=== PATIENT | female | born 1960 | race Caucasian/White ===

== ENCOUNTER 2025-10-26 16:04 | Outpatient (AMB) | payer OTHER, SELFPAY ==
--- NOTE | 2025-10-26 16:09 | MHC.OFFVIS ---
Intake Visit Reasons: 1 year follow up HPI Comments Details: 65 years old woman with migraine. She is presenting for follow-up of headaches. The patient reports experiencing a couple of headaches per month, which are sometimes preceded by a light flash. The patient initiates medication at the onset of any headache, which effectively resolves the symptoms. The patient's regular medication includes Prempro for hormonal balance, which the patient is in the process of weaning off. For occasional back spasms, the patient uses an anti-inflammatory for less severe episodes and a muscle relaxer for more severe instances. The patient reports being in menopause. Review of Systems Narrative - Neurological: Reports approximately two headaches per month, sometimes with an associated light flash. - Musculoskeletal: Reports occasional back spasms. - Endocrine: Reports ongoing menopausal symptoms. Physical Exam Neuro Other: Mental Status: Alert and oriented to person, place, and time. Normal attention. Normal spontaneous speech, fluency, and comprehension. Cranial Nerves: CN II: Visual interiano full to confrontation, visual acuity intact. CN III, IV, : Pupils equal, round, reactive to light and accommodation. Extraocular movements are normal. CN V: Facial sensation is normal. CN VII: Facial movements symmetrical. CN VIII: Hearing intact to bedside conversation is normal. CN IX, X: Palate elevates symmetrically. CN XI: Shoulder shrug and head turn symmetrical. CN XII: Tongue midline without atrophy or fasciculations. Extrapyramidal: Full facial expressions and blinking. No rigidity. Movements are appropriate with no tremor or abnormality. Speech: Normal; no dysarthria or tremor. Assessment & Plan Assessment & Plan (1) Migraine without aura: Code(s): G43.009 - Migraine without aura, not intractable, without status migrainosus Category: Medical Qualifiers: Status migrainosus presence: without status migrainosus Intractability: not intractable Qualified Code(s): G43.009 - Migraine without aura, not intractable, without status migrainosus Plan Migraine w/o aura Rec: Sumatriptan 50mg one a day as needed Medications: New sumatriptan succinate 50 mg orally qd prn for headache PRN; do not exceed 4 doses per 24 hrs 10 tabs 5RF migraine headache Coding Level of Care Code Est Pt Level 3 (11423) Diagnoses Migraine without aura and without status migrainosus, not intractable G43.009 Status migrainosus presence: without status migrainosus Intractability: not intractable
--- OUTSIDE RECORDS SUMMARY | 2025-10-26 18:39 | XMS_ITS | Data Portability ---
Author Organization [place] - [facility], Allergy Address [address] [address] Care Team Providers Care [employer] Specialist Name Role Phone VAN LOVE Referring Provider [phone] Assessment No assessment recorded. Plan of Treatment Reminders Order Date Submit Date Provider Last Modified By Organization Details Last Modified Time Details Appointments None record ed. Lab None record ed. Referral None record ed. Procedures None record ed. Surgeries None record ed. Imaging None record ed. Medication Orders None record ed. Patient TargetsNo targets recorded. Patient InstructionsNo instructions recorded. Reason for Referral None Reported. Results Created Date Observation Date Name Description Value Unit Range Abnormal Flag Note LastModifiedBy Organization Detail LastModifiedTime 06/26/20 25 06/23/2025 XR, sinus es, paran emily, 3 or more view No observ ation record ed. Not Available 11/2024 11:11:14 06/26/20 25 06/03/2025 CT, sinus es, w/o contr ast No observ ation record ed. [email or web address] Not Available 11/2024 13:55:11 Result Notes None recorded. Problems Name Problem SNOMED Code Status Onset Date Resolution Date Notes Provider Name and Address Organization Details Recorded Time Bilateral tinnitus 93022870055 02 Active 2017 Tinnitus, bilateral ; Note: Date Diagnosed : 03/13/2018 2:24 PM (H93.13) Not Available [facility] 4 02:27:45 Sensorine ural hearing loss of bilateral ears 692471522 Active 2022 Sensorine ural hearing loss, bilateral ; Note: Date Diagnosed : 3 4:00 PM (H90.3) Not Available [facility] 4 02:27:47 Recurrent acute maxillary sinusitis Active 2024 MADIHA ATKINSON MD [address] [place] [address], [place], [address] , [facility] 5 10:57:21 Posterior rhinorrhe a 71864774 Active 2024 MADIHA ATKINSON MD [address] [place] [address], [place], [address] , [facility] 5 11:03:11 Problem Notes None recorded. Procedures Surgical History Date Name Laterality Status Provider Name and Address Organization Details Recorded Time 06/23/2025 NasalEndos copy_DP completed MADIHA ATKINSON MD [address] [place] [address], [place], [address], [facility] 06/23/2025 10:57:40 Imaging Results None recorded. Procedure Notes None recorded. Medical Equipment None Reported. Allergies Allergen ID Allergen Name Allergen Category Reaction Reaction Severity Criticality Documentation Date Start Date Code Code System Note Provider Name and Address Organization Details Recorded Time 97686 Substance with sulfonami de structure and antibacte rial mechanism of action (substanc e) medicatio n other Not available Not available 04/08/2024 99896 8003 SNOMED React ion: unkno wn, unspe cifie d;; Not Available [facility] 4 00:55:30 Medications Name Sig Start Date Stop Date Status Note LastModified by Organization Details LastModified Time cyclobenza jose 10 mg tablet TAKE 1/2 TO 1 TABLET THREE TIMES A DAY NEEDED active Not Available Not Available No t Available doxycyclin e hyclate 100 mg capsule PLEASE SEE ATTACHED FOR DETAILED DIRECTION S active Not Available Not Available No t Available fluconazol e 150 mg tablet TAKE 1 TABLET BY MOUTH NOW. REPEAT IN 7 DAYS IF SYMPTOMS PERSIST active Not Available Not Available No t Available valacyclov ir 1 gram tablet TAKE 1 TABLET BY MOUTH TWICE A DAY FOR 3 DAYS active Not Available Not Available No t Available sumatripta n 50 mg tablet TAKE 1 TABLET BY MOUTH AT LEAST 2 HOURS BETWEEN DOSES NEEDED active Not Available Not Available No t Available valacyclov ir 500 mg tablet TAKE 1 TAB BY MOUTH 2 TIMES A DAY FOR 3 DAYS. active Not Available Not Available No t Available estradiol 1 mg tablet TAKE 1 TABLET BY MOUTH EVERY DAY active Not Available Not Available No t Available benzonatat e 100 mg capsule TAKE 1 CAPSULE BY MOUTH 3 TIMES A DAY IF NEEDED FOR COUGH. DO NOT CRUSH OR CHEW. active Not Available Not Available No t Available pantoprazo le 40 mg tablet,del ayed release 2017 active Medicatio n ID: [id number] Du ration Value: 30 Brand Name: pantopraz ole Send Method: E-Prescri bed Subs Allowed: subs OK Specia l Instructi on: TAKE 1 TAB BY MOUTH 2 TIMES DAILY. Ut dicationG enericNam e: pantopraz ole Not Available Not Available Not Available omeprazole 20 mg capsule,de layed release TAKE 1 CAPSULE BY MOUTH DAILY FOR 360 DAYS. active Not Available Not Available No t Available codeine 10 mg-guaifen esin 100 mg/5 mL oral liquid PLEASE SEE ATTACHED FOR DETAILED DIRECTION S active Not Available Not Available No t Available azelastine 137 mcg (0.1 %) nasal spray ADMINISTE R 1 SPRAY INTO EACH NOSTRIL 2 TIMES A DAY DIRECTED active Not Available Not Available No t Available levofloxac in 500 mg tablet TAKE 1 TABLET BY MOUTH 1 TIME EACH DAY FOR 10 DAYS. active Not Available Not Available No t Available albuterol sulfate HFA 90 mcg/actuat ion aerosol inhaler INHALE 2 PUFFS BY MOUTH EVERY 4 (FOUR) HOURS IF NEEDED FOR WHEEZING OR SHORTNESS OF BREATH. active Not Available Not Available No t Available ipratropiu m bromide 21 mcg (0.03 %) nasal spray SPRAY 2 SPRAYS BY NASAL ROUTE TWO TIMES A DAY. active Not Available Not Available No t Available naproxen 500 mg tablet TAKE 1 TABLET BY MOUTH TWICE A DAY NEEDED FOR MILD PAIN active Not Available Not Available No t Available progestero ne micronized 100 mg capsule TAKE 1 CAPSULE BY MOUTH EVERY DAY active Not Available Not Available No t Available amoxicilli n 875 mg-potassi um clavulanat e 125 mg tablet TAKE 1 TABLET BY MOUTH TWICE A DAY FOR 10 DAYS active Not Available Not Available No t Available Prempro 0.3 mg-1.5 mg tablet TAKE 1 TABLET BY MOUTH EVERY DAY active Not Available Not Available No t Available Vitals Date Recorded Body height Body mass index (BMI) Body weight Provider Name and Address Organization Details Last Updated DateTime 06/23/2025 170.18 cm 29.8 kg/m2 54662.55 g Natan Broussard [place] - [facility] 06/23/2025 10:42:23 Social History None recorded. Functional Status None recorded. Mental Status None recorded. Family History Nothing Reported. Medical History No medical history recorded. Gynecological HistoryNo gynecological history recorded. Obstetrics History GPAL:G 0 P 0 0 0 0 Past Encounters Encounter ID Performer Location Encounter Start Date Encounter Closed Date Diagnosis/Indication Diagnosis SNOMED-CT Code Diagnosis ICD10 Code Diagnosis IMO Codes Diagnosis Note [id number] MADIHA ATKINSON MD [facility] [address] [address] 06/23/2025 10:31:28 06/23/2025 11:03:04 Recurrent acute maxillary sinusitis [id number] J01.01 [id number] I reviewed her CT scan which demonstrat ed acute sinusitis. She reports she is symptomati bright improved since the scan was done 20 days ago. Nasal endoscopy was performed today and no purulent mucus was identified . I suspect she has a resolving refractory sinusitis. I suggested she begin nasal sinus rinses and I instructed her on a technique of using them. She can continue her nasal steroid spray and Mucinex. I asked her to call me if her symptoms worsen and I would consider antibiotic s together with prednisone . Posterior rhinorrhea 758 16899 R09.82 [id number] See above Health Concerns Section Related Observation LastModified by Organization Detai ls LastModified Time None Recorded Concern Status LastModified by Organization Details LastModified Time None Recorded Advance Directives Directive None Recorded Payers Insurance Date Sequence Insurance Name Policy Number Policy Byers Covered Member ID Byers Member ID Guarantor Name 06/23/2025 1 [facility] ([id number]) [id number] Nalini Tidwell [id number] 1 Nalini Tidwell 06/01/2025 1 [facility] [id number] Nalini Tidwell [id number] 1 Nalini Tidwell Notes Date Note Type Note Provider Name and Address Organization Details Recorded Time 06/23/2025 text/html ROS as noted in the HPI In March she developed nasal congestion, post nasal drainage and pressure in her face. She went to urgent care. She was recommended to use conservative measures. She improved and then after a few days worsened. She was treated with amox which helped with her sore throat but it didn't help her sinuses much. This continued happening. She was treated 4 times with abx. She had a sinus x-ray 05/05/25 which was negative for sinusitis. She saw her PCP 06/01 and was given abx and a sinus CT 06/03/25 which showed a maxillary and ethmoid sinusitis. She was also given a nasal spray. Her facial pressure has improved. She notes some post nasal drainage still. MADIHA ATKINSON MD [address] [place] [address], [place], [address], [place] - [facility] 06/23/2025 11:04:36 OBGyn Episode No OBEpisode recorded.
--- OUTSIDE RECORDS SUMMARY | 2025-10-26 18:39 | XMS_ITS | Clinical Summary ---
Author Organization Patient Business Ser [facility] Address [address] [place] [address] Care Team Providers Care Electrical Power Engineer Name Role Phone Sarah Kruger MD Primary Care Prov ider Allergies Active Allergy Reactions Criticality Noted Date Comments Sulfa (Sulfonamide Antibiotics) Hives 06/27 Medications naproxen (NAPROSYN) 500 mg tablet TAKE 1 TABLET BY MOUTH TWICE A DAY NEEDED FOR MILD PAIN 60 tablet 4 Active cyclobenzaprine (FLEXERIL) 10 mg tablet TAKE 1/2 TO 1 TABLET THREE TIMES A DAY NEEDED 30 tablet 4 4 Active Prempro 0.3-1.5 mg per tablet Take 1 tablet by mouth 1 (one) time each day. Active SUMAtriptan (IMITREX) 50 mg tablet Take 1 tablet (50 mg total) by mouth if needed. 4 Active fexofenadine HCl (STEFFEN ORAL) Take by mouth if needed. Active acetaminophen (TYLENOL) 500 mg tablet Take 2 tablets (1,000 mg total) by mouth every 8 (eight) hours if needed for mild pain or fever - temperature GREATER than 38 C (100.4 F). Active azelastine (ASTELIN) 137 mcg (0.1 %) nasal spray Administer 1 spray into each nostril 2 (two) times a day. Use in each nostril as directed 30 mL 1 5 06/03/20 26 Active albuterol HFA (ProAir HFA) 90 mcg/actuation inhaler Inhale 2 puffs by mouth every 4 (four) hours if needed for wheezing or shortness of breath. 8.5 g 5 06/03/20 Active valACYclovir (VALTREX) 500 mg tablet Take 1 tab (500 mg) by mouth 2 times a day for 3 days. 6 tablet 5 5 06/03/20 Active benzonatate (TESSALON) 100 mg capsule Take 1 capsule (100 mg total) by mouth 3 (three) times a day if needed. Active Active Problems Problem Noted Date Diagnosed Date Sprain of neck 02/24/2016 Sprain of thoracic region 02/24/2016 DDD (degenerative disc disease), cervical 2014 Immunizations Immunization Administration Dates Next Due [employer] SARS-CoV-2 COVID-19, mRNA, LNP-S, preservative free 05/08/2021,04/26/2021,04/17/2021,2020 Zoster recombinant (Shingrix ) 19yo and older 03/15/2024,01/05/2024 Surgical History Surgery Date Site/Laterality Comments SECTION PROCEDURE: HISTORICAL ; COMMENT: x1 OTHER SURGICAL HISTORY PROCEDURE: ---- OTHER ----; COMMENT: breast implantation Medical History Medical History Date Comments Allergic rhinitis DX:Allergic rh initis History of herpes labialis 06/01/2016 DX:Hi story of herpes labialis Family History Medical History Relation Name Comments Lung cancer Brother 1 smoker Stroke Brother 2 smoker, drinkin g, overweight; age 56ish Emphysema Father smoker, Diabetes Mother Hypertension Mother Other: heart murmur Sister Relation Name Status Comments Brother 1 Brother 2 Father Mother Sister Social History Tobacco Use Types Packs/Day Years Used Date Smoking Tobacco: Never Smokeless Tobacco: Never Tobacco Cessation:Counseling Given: Not Answered Alcohol Use Standard Drinks/Week Comments Yes 0 (1 standard drink = 0.6 oz pur e alcohol) social, weekend Comments No Sex and Gender Information Value Date Recorded Sex Assigned at Not on file Legal Sex Female 10:19 AM EDT Gender Identity Not on file Sexual Orientation Not on file Obstetrics History Last Filed Vital Signs Vital Sign Reading Time Taken Comments Blood Pressure 124/68 06/23/2025 1:11 PM EDT Pulse 99 06/23/2025 1:11 PM EDT Temperature 36.5 C (97.7 F) 06/23/2025 1:11 PM EDT Respiratory Rate - - Oxygen Saturation 98% 04/24/2025 1:00 PM EDT Inhaled Oxygen Concentration - - Weight 68.9 kg (152 lb) 06/23/2025 1:11 PM EDT Height 162.6 cm (5' 4 ) 06/23/2025 1:11 PM EDT Body Mass Index 26.09 06/23/2025 1:11 PM EDT Plan of Treatment Health Maintenance Due Date Last Done Comments Breast Cancer Screening 1961 DTaP,Tdap,and Td Vaccines (1 - Tdap) 1980 Pneumococcal Vaccine: 50+ Years (1 of 1 - PCV) 2011 Colorectal Cancer Screening: Stool Based Tests (FOBT/FIT) 03/01/2021 HIV Screening 03/01/2021 Social Influencers of Health Screening 03/01/2021 Cervical Cancer Screening: Pap Smear 06/26/2022 06/26/2019 Depression Screening 11/26/2024 COVID-19 Vaccine ( season) 2025 05/08/2021, 04/26/2021, 04/17/2021, Additional history exists Influenza Vaccine (#1) 2025 Cholesterol Screening (Lipid Panel) 09/04/2029 09/04/2024, 09/04/2024 RSV Immunization Adult Patients (1 - 1-dose 75+ series) 2036 Hepatitis C Screening Completed 07/25/2017 Colorectal Cancer Screening: Colonoscopy Discontinued 02/24/2023 Zoster Vaccines Completed 03/15/2024, 01/05/2024 HIB Vaccines Aged Out No longer eligi ble based on patient's age to complete this topic HPV Vaccines Aged Out No longer eligi ble based on patient's age to complete this topic Hepatitis A Vaccines Aged Out No long er eligible based on patient's age to complete this topic Hepatitis B Vaccines Aged Out No long er eligible based on patient's age to complete this topic IPV Vaccines Aged Out No longer eligi ble based on patient's age to complete this topic MMR Vaccines Aged Out No longer eligi ble based on patient's age to complete this topic Meningococcal ACWY Vaccine Aged Out N o longer eligible based on patient's age to complete this topic Meningococcal B Vaccine Aged Out No l onger eligible based on patient's age to complete this topic RSV Immunization Patients Under 20 months Aged Out No longer eligible based on patient's age to complete this topic Varicella Vaccines Aged Out No longer eligible based on patient's age to complete this topic Procedures Procedure Name Priority Date/Time Associated Diagnosis Comments LIPID PANEL Routine 09/04/2024 COLONOSCOPY Routine 02/24/2023 PAP SMEAR Routine 06/26/2019 HEPATITIS C SCREENING Routine 07/25/2017 from Last 3 Months or Most Recently Relevant to Health Maintenance Results * (ABNORMAL) Lipid panel (09/04/2024) LDL/HDL Ratio 3 0 - 4 Triglycerides 183(A) 0 - 150 mg/dL Cholesterol 210(A) 0 - 200 mg/dL HDL 72 >=40 mg/dL LDL Cholesterol 102(A) 0 - 100 mg/dL Blood Venous blood specimen / Unknown [facility] Provider LAB BLOOD ORDERABLES Marily l Result * Colonoscopy (02/24/2023) Colonoscopy no interpretation , abstracted Anatomical Region Laterality Modality Other [facility] Provider HEALTH MAINTENANCE Final Result * Pap Smear (06/26/2019) Pap smear normal, abstracted Comment:Per patient - patien t reports nomal results. External competion. [facility] Provider HEALTH MAINTENANCE Final Result * Hepatitis C Screening (07/25/2017) Hepatitis C Screening abstracted [facility] Provider HEALTH MAINTENANCE Final Result from Last 3 Months or Most Recently Relevant to Health Maintenance Insurance [facility] [place] [id number] Care Teams Electrical Power Engineer Relationship Specialty Start Date End Date Sarah Kruger MD PCP - General Internal Medicine 03/03/21
== END 2025-10-26 16:15 | disposition home or self-care (01) ==
LOC: HO.HSM 16:04
PROVIDERS: PCP Internal Medicine; Visit Provider Psychiatry & Neurology Neurology
DX: G43.009 Migraine without aura, not intractable, without status migrainosus (principal)
CPT/HCPCS: 99213

== ENCOUNTER → 2025-10-26 16:04 | Outpatient (BNVA) | payer OTHER, SELFPAY | PROVIDERS: PCP Internal Medicine; Visit Provider Psychiatry & Neurology Neurology | DX: G43.009 Migraine without aura, not intractable, without status migrainosus (principal) | CPT/HCPCS: 99212 ==